=== PATIENT | male | born 1985 | race Caucasian/White ===

== ENCOUNTER 2021-08-12 15:49 | Emergency (ER) | payer OTHER, SELFPAY ==
--- NOTE | ~2021-08-12 | XR_ITS ---
EXAMINATION: XR foot RT min 3V DATE: 08/12/2021 16:32 INDICATION: Dog bite with pain, erythema and swelling at the medial right midfoot TECHNIQUE: Dorsoplantar, two oblique and lateral views of the right foot were obtained. COMPARISON: None. FINDINGS: Bone alignment is normal. Subtle sclerosis at the margins of a 4 mm round lucency along the dorsal as pect of the base of the first metatarsal. Unclear this represents a lytic lesion or given the history of a dog bite, potentially a punch type fracture although no clear cortical disruption is identi fied. No other lesions suspicious for fracture identified. Joint spaces are normal. Soft tissue swell ing at the dorsal medial aspect of the right midfoot. No soft tissue gas or radiopaque foreign bodies . IMPRESSION: 1. 4 mm round lucency projecting over the dorsal aspect of the base of the right first metatarsal, un clear whether this represents in nonspecific intramedullary lytic/lucent lesion or potentially a punch type fracture resulting from a tooth. If present this would be considered an open/compound frac ture at increased risk of the ostomy myelitis and therefore would consider CT for more definitive det ermination. Reviewed, dictated and finalized at location A. 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 4 mm round lucency projecting over the dorsal aspect of the base of the righ t first metatarsal, unclear whether this represents in nonspecific intramedulla ry lytic/lucent lesion or potentially a punch type fracture resulting from a tooth. If present this would be considered an open/compound fracture at incre ased risk of the ostomy myelitis and therefore would consider CT for more defin itive determination.
[2021-08-12 16:04] VITALS: BP 148/94; PULSE 108; RESP 16; TEMP 37.7; O2SAT 100
[2021-08-12] MEDS: TETANUS,DIPHTHERIA,AC PERTUSSIS ADULT (0.5 ML) BOOSTRIX IM (16:29)
--- NOTE | 2021-08-12 16:29 | ED.ANIMALBIT ---
HPI - Animal Bite General Chief Complaint: Animal Bite Stated Complaint: Dog Bite Time Seen by Provider: 08/12/21 16:15 Source: patient Mode of arrival: ambulatory Limitations: no limitations History of Present Illness HPI narrative: Patient endorses dog bite to the right foot, onset this morning. States he was playing with his 2 dogs, which are vaccinated. States he was in the way of their playing, and has puncture wound to the top and bottom of the right foot. Endorses difficulty walking due to pain. Bleeding controlled. Cleaned at home with hydrogen peroxide. Patient is unsure of tetanus vaccination. complaint: animal bite Related Data Allergies Allergy/AdvReac Type Severity Reaction Status Date / Time No Known Allergies Allergy Verified 08/12/21 16:07 Review of Systems Review of Systems: CONSTITUTIONAL: Denies fever, chills, or sweats. EYES: Denies visual changes, ENT: Denies rhinorrhea, congestion CARDIOVASCULAR: Denies chest pain RESPIRATORY: Denies cough GASTROINTESTINAL: Denies abdominal pain SKIN: Dog bite to right foot MUSCULOSKELETAL: Denies myalgia. NEUROLOGIC: Denies headache, numbness, tingling, or weakness. PSYCH: Denies depression or anxiety. All systems reviewed & are unremarkable except as noted in HPI and below PMFSH Comments At time of signature, I have reviewed and agree with nursing past medical, surgical, social and family history unless otherwise noted. Please see nursing chart for further information. There is no relevant family history pertinent to the presenting complaint Exam Narrative: GENERAL: Well-appearing, well-nourished, and in no acute distress. HEAD: Normocephalic, atraumatic. EYES: EOMI. No redness or drainage ENT: Mucous membranes pink and moist. NECK: Normal AROM. Supple. CHEST: No respiratory distress. Clear to auscultation. HEART: Regular rate and rhythm. No murmur appreciated. Normal peripheral pulses. ABDOMEN: Soft, nontender, nondistended MUSCULOSKELETAL: No bony tenderness. EXTREMITIES: Normal range of motion. No edema. SKIN: Right foot puncture wound to dorsal and plantar aspects, plantar wound with surrounding contusion approx 2 inches diameter, mild erythema surrounding dorsal puncture wound approx 1 inch diameter, no active drainage; Warm, dry, no rash. Capillary refill normal. Normal skin turgor. NEURO: No focal deficits. Alert and oriented x3 PSYCH: Normal affect. Course Course Emergency Course: Wound irrigated per RN Xray reviewed with pt. Pt is agreeable to transfer due to need for CT for further evaluation of possible open fracture . Requests transfer to [facility] via private vehicle. Risks of transportation reviewed with pt; including injury, worsening of condition and . v/u. Report called to hospital, spoke with Socorro DIEHL, accepting physician Dr Ascencio. Disc provided. Patient is aware of diagnosis, understands and agrees to treatment plan. Anticipatory guidance given. Patient agrees to follow-up as directed and is aware of reasons to seek care at the emergency department. Portions of this record may have been created with voice recognition software Level of Care: Express Care Visit Vital Signs Vital signs: Vital Signs Temperature 99.8 F H 08/12/21 16:04 Pulse Rate 108 H 08/12/21 16:04 Respiratory Rate 16 08/12/21 16:04 Blood Pressure 148/94 H 08/12/21 16:04 Pulse Oximetry 100 08/12/21 16:04 Temperature 99.8 F H 08/12/21 16:04 Pulse Rate 108 H 08/12/21 16:04 Respiratory Rate 16 08/12/21 16:04 Blood Pressure 148/94 H 08/12/21 16:04 Pulse Oximetry 100 08/12/21 16:04 Transfer Transfered to: [facility] Transportation: Other (private vehicle) Transfer rationale: Higher level of care Accepting physician: Dr. Ascencio MDM - Animal Bite Differential Diagnosis Differential diagnosis: Likely bite by animal, dog bite, rabies contact and other (open fracture) Discharge
== END 2021-08-12 17:16 | disposition short-term general hospital (02) ==
PROVIDERS: Emergency Provider Nurse Practitioner Family
DX: S91.331A Puncture wound without foreign body, right foot, initial encounter (principal); W54.0XXA Bitten by dog, initial encounter; Z23 Encounter for immunization
CPT/HCPCS: 73630; 90471; 90715; 99213; G0463

== ENCOUNTER 2021-10-06 09:24 | Emergency (ER) | payer OTHER, SELFPAY ==
[2021-10-06 09:32] VITALS: BP 148/84; PULSE 99; RESP 14; TEMP 37.3; O2SAT 95
--- NOTE | 2021-10-06 10:02 | ED.BACK ---
HPI - Back Pain/Injury General Chief Complaint: Back Pain/Injury Stated Complaint: lumbar pain Time Seen by Provider: 10/06/21 09:43 Source: patient and RN notes reviewed Mode of arrival: ambulatory Limitations: no limitations History of Present Illness HPI Narrative: Patient presents today complaining of midline low back pain x4 days. 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 Denies any injury or trauma. Denies reports intermittent radiation of the pain to the bilateral buttocks. Denies numbness or tingling in the extremities. Denies any loss of bowel or bladder control. He currently rates his pain 2/10 at rest, which increases to 8/10 with movement. He has tried some marijuana oil, which helps with stiffness in the back, but did not relieve his pain. MD elicited complaint: back pain Related Data Allergies Allergy/AdvReac Type Severity Reaction Status Date / Time No Known Allergies Allergy Verified 10/06/21 09:57 Review of Systems Review of Systems: CONSTITUTIONAL: Denies body aches, fever, chills, or sweats. EYES: Denies visual changes, redness, or discharge. ENT: Denies rhinorrhea, congestion, sore throat, or otalgia. CARDIOVASCULAR: Denies chest pain, palpitations, or edema. RESPIRATORY: Denies cough or dyspnea. GASTROINTESTINAL: Denies abdominal pain, nausea, vomiting, or diarrhea. GENITOURINARY: Denies dysuria or hematuria. SKIN: Denies rash, itching, or wounds. MUSCULOSKELETAL: Denies joint pain, or myalgia. + Back pain NEUROLOGIC: Denies headache, numbness, tingling, or weakness. PSYCH: Denies depression or anxiety. PMFSH Comments At time of signature, I have reviewed and agree with nursing past medical, surgical, social and family history unless otherwise noted. Please see nursing chart for further information. There is no relevant family history pertinent to the presenting complaint Exam Narrative: GENERAL: Well-appearing, well-nourished, and in no acute distress. HEAD: Normocephalic, atraumatic. EYES: EOMI. No redness or drainage. Conjunctivae normal. ENT: Mucous membranes pink and moist. NECK: Normal AROM. CHEST: No respiratory distress. MUSCULOSKELETAL: No bony tenderness of the spine. Left lower lumbar paraspinal muscle tenderness with palpable muscle spasm. Right lumbar paraspinal muscles are nontender. Distal sensation intact. Saddle sensation intact. Capillary refill normal. Patellar reflexes equal and normal. Dorsiflexion and plantarflexion normal against resistance. EXTREMITIES: Normal range of motion. No edema. SKIN: Warm, dry, no rash. Capillary refill normal. Normal skin turgor. NEURO: No focal deficits. Alert and oriented x3. Gait steady. PSYCH: Normal affect. No signs of depression or anxiety. Course Course Level of Care: Express Care Visit Vital Signs Vital signs: Vital Signs Temperature 99.1 F 10/06/21 09:32 Pulse Rate 99 10/06/21 09:32 Respiratory Rate 14 10/06/21 09:32 Blood Pressure 148/84 H 10/06/21 09:32 Pulse Oximetry 95 10/06/21 09:32 Temperature 99.1 F 10/06/21 09:32 Pulse Rate 99 10/06/21 09:32 Respiratory Rate 14 10/06/21 09:32 Blood Pressure 148/84 H 10/06/21 09:32 Pulse Oximetry 95 10/06/21 09:32 Reviewed. Pt has been instructed to follow up with his PCP regarding his elevated blood pressure today. MDM - Back Pain/Injury Differential Diagnosis Differential diagnosis: Likely lumbar radiculopathy, sciatica, strain of lumbar region and other (Bulging disc) Critical Care Time Critical Care Time Critical Care Time: No Discharge Plan Discharge Clinical Impression: Strain of lumbar region Qualifiers: Encounter type: initial encounter Qualified Code(s): S39.012A - Strain of muscle, fascia and tendon of lower back, initial encounter Patient Disposition: Home, Self-Care Condition: Stable Instructions: Low Back Strain (ED) Additional Instruct
== END 2021-10-06 10:10 | disposition home or self-care (01) ==
PROVIDERS: Emergency Provider Nurse Practitioner
DX: S39.012A Strain of muscle, fascia and tendon of lower back, initial encounter (principal); X50.1XXA Overexertion from prolonged static or awkward postures, initial encounter; M54.12 Radiculopathy, cervical region
CPT/HCPCS: 99213; G0463

== ENCOUNTER 2021-10-10 06:20 | Emergency (ER) | payer OTHER, SELFPAY ==
--- NOTE | ~2021-10-10 | XR_ITS ---
EXAMINATION: XR lumbar spine min 4V EXAM DATE: 10/10/2021 09:43 INDICATION: back pain, repetitive motion at work, low back pain TECHNIQUE: Lumber spine frontal, lateral, bilateral oblique projections. Coned down frontal and lat eral L5-S1 lumbar projections for interpretation. There is no prior study for comparison. FINDINGS: Mild diffuse lumbar disc disease and mid and lower lumbar facet arthropathy. No spondylolys is. The vertebral bodies are aligned in the AP dimension. There are no acute fractures identified. Sa honorio, sacroiliac joints, sacral arcuate lines are intact. Paraspinal soft tissue is unremarkable. IMPRESSION: Mild lumbar spondylosis. Reviewed, dictated and finalized at location B. IMPRESSION: Mild lumbar spondylosis.
[2021-10-10 06:25] VITALS: BP 148/94; PULSE 94; RESP 18; TEMP 36.6; O2SAT 100
--- NOTE | 2021-10-10 08:11 | ED.BACK ---
HPI - Back Pain/Injury General Chief Complaint: Back Pain/Injury Stated Complaint: back pain Time Seen by Provider: 10/10/21 08:03 Source: RN notes reviewed History of Present Illness HPI Narrative: Patient presents emergency room from home for low back pain. Patient states that symptoms began at work approximately 8 days ago. 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 and states that during the course of work he began to notice pain in his lower back he denies any direct trauma or injury to his lower back he states the pain is worse with forward flexion and twisting pain is looking the bilateral lower back and does not radiate he denies any numbness or tingling in the extremities fevers or chills abdominal pain or any other symptoms states he gone to urgent care approximately 5 days ago and was given steroids and muscle relaxers which she has been taking with minimal relief he denies any other previous history of back pain or injury Related Data Allergies Allergy/AdvReac Type Severity Reaction Status Date / Time No Known Allergies Allergy Verified 10/10/21 06:28 Review of Systems Review of Systems: Gen.: Denies fevers or chills ENT: Denies congestion Respiratory: Denies shortness of breath or cough CV: Denies chest pain or palpitations GI: Denies abdominal pain nausea, emesis or diarrhea denies incontinence Musculoskeletal: See HPI Neuro: Denies numbness, tingling, weakness or focal weakness Skin: Denies rash Except as documented, all other systems reviewed and negative [facility] Past Medical History Medical History (Updated 10/10/21 @ 11:21 by Flynn Greenfield DO) Patient denies significant medical history Social History Social History (Updated 10/10/21 @ 08:13 by Flynn Greenfield DO) Smoking status: Never smoker Exam Narrative: APPEARANCE: No acute distress, nontoxic, resting in bed Eyes: EOMI HEENT: Normocephalic, atraumatic, CV: Regular rate and rhythm without murmur RESPIRATORY: No respiratory distress. Clear to auscultation bilaterally. Abdomen: Soft and nontender, no rebound or guarding MUSCULOSKELETAl: Moves all extremities, no clubbing cyanosis or edema Back: No midline lumbar tenderness to palpation or step-off, tender to palpation over bilateral paravertebral muscles L3-5 , pain increased with forward flexion NEURO: Awake and alert. Following commands, speech normal, no focal deficits, muscle strength 5 out of 5 bilateral lower extremities, bilateral patellar reflex 2+ SKIN:: Warm, dry. Normal Color no rash or lesions Course Course Emergency Course: Patient states today was his last dose of Flexeril Patient able to get up and ambulate in ED with no difficulty Discussed with patient results of workup and diagnosis. Discussed need for follow-up with primary care, proper use of medication, and reasons to return to the emergency department. Patient understands and agrees to current treatment plan Vital Signs Vital signs: Vital Signs Temperature 97.8 F 10/10/21 06:25 Pulse Rate 94 10/10/21 06:25 Respiratory Rate 18 10/10/21 06:25 Blood Pressure 148/94 H 10/10/21 06:25 Pulse Oximetry 100 10/10/21 06:25 Temperature 97.8 F 10/10/21 06:25 Pulse Rate 94 10/10/21 06:25 Respiratory Rate 18 10/10/21 06:25 Blood Pressure 148/94 H 10/10/21 06:25 Pulse Oximetry 100 10/10/21 06:25 MDM - Back Pain/Injury MDM Narrative Medical decision making narrative: Patient?s pain is positional and localized to back without signs of cord compression or cauda equina. Normal nuerologic exams. No fever noted and no significant risk factors for osteomyelitis or spinal epidural abscess. No symptoms or signs to suggest pain is referred from abdominal or source. There are no pulsatile masses to exam. Patient ambulates with a steady gait and is felt to be up reasonable candidate for continued outpatient management Lab Data Labs: Lab Results 10/10/21 Range/Units 08:47 Urine Color Straw
[2021-10-10 09:24] LABS: Add Urine Microscopic? NO; Appearance Urine Clear (Clear); Bilirubin Urine Negative (Negative); Blood Urine Negative (Negative); Color Urine Straw (Yellow); Glucose Urine UA Negative (Negative); Ketones Urine Negative (Negative); Leukocyte Esterase Ur Negative LEU/UL (Negative); Nitrate Urine Negative (Negative); Protein Urine Negative (Negative); Specific Grav Ur 1.009 (1.001-1.035); Urobilinogen Urine Negative mg/dL (<2.0)
[2021-10-10] MEDS: KETOROLAC (*BKC) 60 MG/2 ML VIAL IM (10:23)
[2021-10-10 11:43] VITALS: BP 136/101; PULSE 80; RESP 18; O2SAT 100
== END 2021-10-10 11:45 | disposition home or self-care (01) ==
PROVIDERS: Emergency Provider Emergency Medicine
DX: M54.50 Low back pain, unspecified (principal); M47.816 Spondylosis without myelopathy or radiculopathy, lumbar region
CPT/HCPCS: 72110; 81003; 96372; 99283; J1885

== ENCOUNTER 2022-03-21 15:11 | Emergency (ER) | payer OTHER, SELFPAY ==
[2022-03-21 15:20] VITALS: BP 147/86; PULSE 95; RESP 20; TEMP 37.3; O2SAT 98
--- NOTE | 2022-03-21 15:26 | ED.ANIMALBIT ---
HPI - Animal Bite General Chief Complaint: Animal Bite Stated Complaint: Dog Bite Time Seen by Provider: 03/21/22 15:26 Source: patient and RN notes reviewed History of Present Illness HPI narrative: Patient is a 36-year-old male who presents the urgent care with complaints of a dog bite to the left buttocks. 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 States that the dog got him right as he was walking out of the gate. Patient reports that the dog membership sales manager did state that the dog was vaccinated and up-to-date on rabies vaccinations. Patient is unsure of what kind of dog bit him. states that the [employer] escalation team will get a hold of the customer and determine if the patient needs any rabies vaccinations. No other acute complaints or injuries. No acute distress noted. Patient read the plan of care. Some parts of this dictation were generated by voice recognition software and may contain typographical and/or grammatical inaccuracies. Related Data Allergies Allergy/AdvReac Type Severity Reaction Status Date / Time No Known Allergies Allergy Verified 03/21/22 15:29 Review of Systems Review of Systems: CONSTITUTIONAL: Denies fever, chills, or sweats. EYES: Denies visual changes, redness, or discharge. ENT: Denies rhinorrhea, congestion, sore throat, or otalgia. CARDIOVASCULAR: Denies chest pain, palpitations, or edema. RESPIRATORY: Denies cough or dyspnea. GASTROINTESTINAL: Denies abdominal pain, nausea, vomiting, or diarrhea. GENITOURINARY: Denies dysuria or hematuria. SKIN: Reports of a dog bite to the left buttocks MUSCULOSKELETAL: Denies back pain, joint pain, or myalgia. NEUROLOGIC: Denies headache, numbness, or weakness. All other systems reviewed are negative, except as documented in HPI. PMFSH Past Medical History Medical History (Updated 03/21/22 @ 15:38 by NAIF Murphy) Patient denies significant medical history Social History Social History (Updated 10/10/21 @ 08:13 by Flynn Greenfield DO) Smoking status: Never smoker Comments At the time of my signature, I reviewed and agree with the nursing past medical, surgical, social, and family history. There is no relevant family history pertinent to the patient complaint. Exam Narrative: GENERAL: This is a well-nourished, well-developed patient, in no apparent distress. HEAD: normocephalic, atraumatic. EYES: PERRL. Sclera clear/white. Vision is grossly intact. EARS: External ears normal NOSE: External nose normal with no obvious nasal discharge, nares without redness, no rhinorrhea. THROAT: Mucous membranes moist NECK: Neck supple SKIN: Skin abrasion, linear superficial 4 cm to the left buttocks. 1cm superficial abrasions to the left buttocks x4. 2 cm superficial abrasion to the left buttocks. Warm, intact with no suspicious lesions or rash, good texture and turgor. NEURO: awake, alert, and oriented to person, place and time. There were no obvious focal neurologic abnormalities. EXTREMITIES: No clubbing, cyanosis, or edema. Course Course Level of Care: Express Care Visit Vital Signs Vital signs: Vital Signs Temperature 99.2 F 03/21/22 15:20 Pulse Rate 95 03/21/22 15:20 Respiratory Rate 20 03/21/22 15:20 Blood Pressure 147/86 H 03/21/22 15:20 Pulse Oximetry 98 03/21/22 15:20 Oxygen Delivery Room Air 03/21/22 15:20 Temperature 99.2 F 03/21/22 15:20 Pulse Rate 95 03/21/22 15:20 Respiratory Rate 20 03/21/22 15:20 Blood Pressure 147/86 H 03/21/22 15:20 Pulse Oximetry 98 03/21/22 15:20 Oxygen Delivery Room Air 03/21/22 15:20 Reviewed-patient is informed that they may have pre-hypertension or hypertension based on a blood pressure reading in the department. I recommend the patient call the primary care provider listed on their discharge instructions or a physician of their choice this week to arrange follow-up for further evaluation of possible pre-hy
== END 2022-03-21 15:45 | disposition home or self-care (01) ==
PROVIDERS: Emergency Provider Nurse Practitioner Family
DX: S30.810A Abrasion of lower back and pelvis, initial encounter (principal); W54.0XXA Bitten by dog, initial encounter
CPT/HCPCS: 99213; G0463

== ENCOUNTER 2024-02-08 11:28 | Emergency (ER) | payer OTHER, SELFPAY ==
[2024-02-08 11:35] VITALS: BP 131/79; PULSE 85; RESP 16; TEMP 37.2; O2SAT 99
--- NOTE | 2024-02-08 12:03 | ED.WOUNDLAC ---
HPI - Wound/Laceration General Chief Complaint: Wound/Laceration Stated Complaint: right inner thigh possible bite Time Seen by Provider: 02/08/24 11:55 Source: patient, RN notes reviewed and old records reviewed Mode of arrival: ambulatory Limitations: no limitations History of Present Illness HPI narrative: 38 year old male who presents to [facility] care with complaints of red lesion right inner upper thigh with surrounding redness and inner small center for the past 3 days.Patient reports no pain to the area but is itchy, has used Benadryl cream to area but has increased in size with surrounding redness. Patient reports no fevers or any drainage from site. Onset (ago): day(s) (3) Location: other (right upper inner thigh) Treatments prior to arrival: other (Benadryl ointment) Related Data Allergies Allergy/AdvReac Type Severity Reaction Status Date / Time No Known Allergies Allergy Verified 02/08/24 11:30 Review of Systems Review of Systems: CONSTITUTIONAL: denies fever, chills or decreased activity HEENT: Denies any eye discharge or redness. Denies any ear mouth or throat pain CHEST: denies any cough, wheezing, or difficulty breathing CARDIOVASCULAR: Denies any rapid heart rate or cool extremities ABDOMINAL: Denies any vomiting, diarrhea, or poor feeding : Denies any dysuria, decreased urine frequency BACK: Denies any lesions SKIN: Reports red lesion with inner dark centr with surrounding redness to right upper inner thigh for 3 days. MUSCULOSKELETAL: Denies any extremity disuse or swelling NEURO: Denies any lethargy, irritability, or seizures All systems reviewed & are unremarkable except as noted in HPI and below PMFSH Past Medical History Medical History Patient denies significant medical history Surgical History Surgical History History of elbow surgery right elbow with hardware Social History Social History Smoking status: Never smoker Alcohol intake: current Alcohol use details: social Substance use type: does not use Gender identity (if verbalized by the patient): Male Comments At time of signature, agree with nursing past medical, surgical, social and family history. There is no relevant family history pertinent to the presenting complaint Exam Narrative: GENERAL: Well-appearing, well-nourished, and in no acute distress. HEAD: Normocephalic, atraumatic. EYES: PERRLA and EOMI. ENT: Nares clear, no rhinorrhea or epistaxis. Mucous membranes moist. NECK: Supple.no lymphadenopathy CHEST: Clear to auscultation. No respiratory distress.SAO2 99% on room air HEART: Regular rate and rhythm. No murmur heard. Normal peripheral pulses. ABDOMEN: Soft, nontender, nondistended, normal active bowel sounds. EXTREMITIES: Normal range of motion. No edema. SKIN: Warm, dry.4cm raised red area to right upper inner thigh with some induration with 0.25 dark center with total surrounding redness 10cm. no drainage noted or fluctuation of tissue, minimal warmth. Reports no pain states tissue is itchy. NEURO: No focal deficits. Alert and oriented x3 Course Course Emergency Course: Patient is aware of diagnosis, understands and agrees to treatment plan. Anticipatory guidance given. Patient agrees to follow-up as directed and is aware of reasons to seek care at the emergency department. Portions of this record may have been created with voice recognition software Level of Care: Express Care Visit Vital Signs Vital signs: Vital Signs Temperature 37.2 C 02/08/24 11:35 Pulse Rate 85 02/08/24 11:35 Respiratory Rate 16 02/08/24 11:35 Blood Pressure 131/79 02/08/24 11:35 Pulse Oximetry 99 02/08/24 11:35 Oxygen Delivery Room Air 02/08/24 11:35 Temperature 37.2 C 02/08/24 11:35 Pulse Rate 85 02/08/24 11:35 Respiratory
== END 2024-02-08 12:16 | disposition home or self-care (01) ==
PROVIDERS: Emergency Provider Registered Nurse; PCP Internal Medicine
DX: L02.415 Cutaneous abscess of right lower limb (principal)
CPT/HCPCS: 99213; G0463